=== PATIENT | female | born 1950 | race Caucasian/White ===

== ENCOUNTER 2017-06-26 16:51 | Inpatient (IN) | payer OTHER ==
[2017-06-26] MEDS ORDERED: LEVAQUIN PREMIX IV 750 MG 750 MG/150 ML BAG IV SCH (19:18)
[2017-06-26] MEDS ORDERED: TUSSIONEX PENNKINETIC SUSP PO PRN (19:18)
[2017-06-26 20:01] LABS: BASOPHILS # (AUTO) 0.1 X10^3/uL (0.0-0.1); BASOPHILS % (AUTO) 0.7 % (0.2-1.0); EOSINOPHILS # (AUTO) 0.1 x10^3/uL (0.0-0.2); EOSINOPHILS % (AUTO) 0.8 % (0.9-2.9); HEMATOCRIT 38.5 % (36.0-47.0); HEMOGLOBIN 13.2 g/dL (12.0-16.0); LYMPHOCYTES # (AUTO) 1.5 X10^3/uL (1.3-2.9); LYMPHOCYTES % (AUTO) 13.8 % (21.0-51.0); MEAN CORPUSCULAR HEMOGLOBIN 29.4 pg (27.0-34.0); MEAN CORPUSCULAR HGB CONC 34.2 g/dL (33.0-35.0); MEAN PLATELET VOLUME 8.2 fL (7.4-11.0); MONOCYTES # (AUTO) 0.6 x10^3/uL (0.3-0.8); MONOCYTES % (AUTO) 5.8 % (0.0-13.0); NEUTROPHILS # (AUTO) 8.8 x10^3/uL (2.2-4.8); NEUTROPHILS % (AUTO) 78.9 % (42.0-75.0); PLATELET COUNT 370 X10^3/uL (150.0-450.0); RED BLOOD COUNT 4.48 X10^6/uL (3.5-5.4); RED CELL DISTRIBUTION WIDTH 13.1 % (11.6-16.5); WHITE BLOOD COUNT 11.1 X10^3/uL (3.6-10.0)
[2017-06-26 20:05] VITALS: BMI 21.4
[2017-06-26 20:06] LABS: ALANINE AMINOTRANSFERASE 19 Units/L (12-78); ALBUMIN 3.1 g/dL (3.4-5.0); ALKALINE PHOSPHATASE 98 Units/L (46-116); ASPARTATE AMINO TRANSFERASE 14 Units/L (15-37); BLOOD UREA NITROGEN 18 mg/dL (7-18); CALCIUM 9.2 mg/dL (8.5-10.1); CARBON DIOXIDE 30.5 mmol/L (21-32); CHLORIDE 100 mmol/L (98-107); COR CA(FOR HYPOALB) 9.9 mg/dL (8.5-10.1); COR NA(FOR HYPERGLY) 139 mmol/L (136-145); CREATININE 0.69 mg/dL (0.55-1.02); SODIUM 139 mmol/L (136-145); TOTAL PROTEIN 7.4 g/dL (6.4-8.2); eGFR BLACK RACES > 60 (>60); eGFR NON BLACK RACES > 60 (>60)
[2017-06-26] MEDS: DUONEB 0.5 MG/3 MG NEB SCH (20:08)
[2017-06-26] MEDS ORDERED: NS 1/2 1000 ML IV 1,000 ML IV ONE (20:51)
[2017-06-26] MEDS ORDERED: LEVAQUIN PREMIX IV 750 MG 750 MG/150 ML BAG IV ONE (21:00)
--- NOTE | 2017-06-26 21:15 | RAD ---
HISTORY: Pneumonia Study: PA and lateral views of the chest. Comparison: None. Findings: The cardiomediastinal silhouette is normal. No focal consolidations, pleural effusions or pneumothora x. Possible left mid lung nodule peripherally. Diffuse increased interstitial markings and hyper expa nsion. IMPRESSION: 1. Findings of COPD with diffuse interstitial prominence and possible left lung nodule. Reported By:
[2017-06-26] MEDS: ZOSYN VIAL 4.5 GM 4.5 GM in NS 100 ML IV + SPIKE MINIBAG* 100 ML IV SCH (21:34)
[2017-06-26] MEDS: ROBITUSSIN DM PO SCH (21:34)
[2017-06-26] MEDS: NS 1/2 1000 ML IV 1,000 ML IV SCH (21:35)
[2017-06-26] MEDS ORDERED: ZOSYN VIAL 4.5 GM 4.5 GM in NS 100 ML IV + SPIKE MINIBAG* 100 ML IV SCH (22:00)
[2017-06-27] MEDS ORDERED: NS 250 ML IV 250 ML IV ONE (05:02)
[2017-06-27] MEDS: ZOSYN VIAL 4.5 GM 4.5 GM in NS 100 ML IV + SPIKE MINIBAG* 100 ML IV SCH ×3 (05:14→21:43)
[2017-06-27 06:17] LABS: BASOPHILS # (AUTO) 0.1 X10^3/uL (0.0-0.1); BASOPHILS % (AUTO) 0.8 % (0.2-1.0); EOSINOPHILS # (AUTO) 0.2 x10^3/uL (0.0-0.2); EOSINOPHILS % (AUTO) 2.4 % (0.9-2.9); HEMATOCRIT 36.6 % (36.0-47.0); HEMOGLOBIN 12.3 g/dL (12.0-16.0); LYMPHOCYTES # (AUTO) 1.5 X10^3/uL (1.3-2.9); LYMPHOCYTES % (AUTO) 17.1 % (21.0-51.0); MEAN CORPUSCULAR HEMOGLOBIN 28.9 pg (27.0-34.0); MEAN CORPUSCULAR HGB CONC 33.7 g/dL (33.0-35.0); MEAN CORPUSCULAR VOLUME 85.7 fL (80.0-100.0); MEAN PLATELET VOLUME 7.8 fL (7.4-11.0); MONOCYTES # (AUTO) 0.7 x10^3/uL (0.3-0.8); MONOCYTES % (AUTO) 7.9 % (0.0-13.0); NEUTROPHILS # (AUTO) 6.2 x10^3/uL (2.2-4.8); NEUTROPHILS % (AUTO) 71.8 % (42.0-75.0); PLATELET COUNT 333 X10^3/uL (150.0-450.0); RED BLOOD COUNT 4.28 X10^6/uL (3.5-5.4); RED CELL DISTRIBUTION WIDTH 13.3 % (11.6-16.5); WHITE BLOOD COUNT 8.7 X10^3/uL (3.6-10.0)
[2017-06-27 06:51] LABS: ALANINE AMINOTRANSFERASE 20 Units/L (12-78); ALBUMIN 2.7 g/dL (3.4-5.0); ALKALINE PHOSPHATASE 83 Units/L (46-116); ASPARTATE AMINO TRANSFERASE 12 Units/L (15-37); BLOOD UREA NITROGEN 17 mg/dL (7-18); CALCIUM 8.6 mg/dL (8.5-10.1); CARBON DIOXIDE 29.6 mmol/L (21-32); CHLORIDE 102 mmol/L (98-107); COR CA(FOR HYPOALB) 9.6 mg/dL (8.5-10.1); CREATININE 0.68 mg/dL (0.55-1.02); SODIUM 138 mmol/L (136-145); TOTAL PROTEIN 6.6 g/dL (6.4-8.2); eGFR BLACK RACES > 60 (>60); eGFR NON BLACK RACES > 60 (>60)
--- NOTE | 2017-06-27 07:21 | RAD ---
HISTORY: Pneumonia Study: Single-view chest Comparison: 06/26/2017 at 9:01 p.m.. Findings: There is a right to left shift of the trachea and mediastinum with hyper expansion of the right lung. Volume loss is again seen on the left with elevation of the left hemidiaphragm. Soft tissue thickeni ng is present in the left paratracheal region which may indicate atelectasis or mass formation or ene nopathy in this region. Increased interstitial markings are present involving both lungs, more so on the left. There is again evidence of a possible left mid-lower lung nodule. Pleural spaces are clear. No pneumothorax is seen. Osseous structures are intact. IMPRESSION: Volume loss in the left lung with soft tissue thickening in the left paratracheal region which may be on the basis of atelectasis, adenopathy or mass. Changes of COPD with suspect nodule present in the left mid-lower lung region. Recommend: CT scanning of the chest with IV contrast. Reported By:
[2017-06-27] MEDS: DUONEB 0.5 MG/3 MG NEB SCH ×4 (08:51→20:35)
[2017-06-27] MEDS: ROBITUSSIN DM PO SCH ×5 (09:47→21:46)
--- NOTE | 2017-06-27 10:25 | DR.UPDATE ---
H&P Update History and Physical Update: WAS SEEN IN THE OFFICE ON 11/23/2017. SHE WAS ADMITTED FOR PNEUMONIA. A H&P WAS COMPLETED PRIOR TO ADMISSION. PATIENT HAS BEEN SEEN AND EXAMINED WITH NO CHANGES NOTED TO H&P. Changes noted: NO Yes with the following:
[2017-06-27] MEDS: PROTONIX INJ 40 MG VIAL IVP SCH ×2 (10:49→21:45)
[2017-06-27] MEDS: SOLU-Medrol 40 MG VIAL IVP SCH ×3 (10:49→21:45)
[2017-06-27] MEDS: TORADOL 15 MG VIAL IVP SCH ×3 (10:49→21:46)
[2017-06-27] MEDS: LEVSIN/MAALOX/LIDOC VISC PO SCH ×4 (10:50→21:44)
[2017-06-27] MEDS ORDERED: NORCO 10/325 TAB PO PRN (11:19)
[2017-06-27] MEDS ORDERED: XANAX PO PRN (11:19)
[2017-06-27] MEDS: PULMICORT NEB TX 0.5 MG NEB SCH ×2 (13:51→20:35)
[2017-06-27] MEDS ORDERED: NS 1/2 1000 ML IV 1,000 ML IV ONE (17:10)
[2017-06-27] MEDS: NS 1/2 1000 ML IV 1,000 ML IV SCH (17:14)
[2017-06-28] MEDS: TORADOL 15 MG VIAL IVP SCH ×4 (04:33→22:26)
[2017-06-28] MEDS: ZOSYN VIAL 4.5 GM 4.5 GM in NS 100 ML IV + SPIKE MINIBAG* 100 ML IV SCH ×3 (06:17→22:26)
[2017-06-28] MEDS: SOLU-Medrol 40 MG VIAL IVP SCH ×3 (06:17→22:26)
[2017-06-28 06:23] LABS: BASOPHILS # (AUTO) 0.1 X10^3/uL (0.0-0.1); BASOPHILS % (AUTO) 0.6 % (0.2-1.0); HEMATOCRIT 33.9 % (36.0-47.0); HEMOGLOBIN 11.5 g/dL (12.0-16.0); LYMPHOCYTES # (AUTO) 0.7 X10^3/uL (1.3-2.9); MEAN CORPUSCULAR HEMOGLOBIN 29.2 pg (27.0-34.0); MEAN CORPUSCULAR HGB CONC 33.9 g/dL (33.0-35.0); MEAN PLATELET VOLUME 8.5 fL (7.4-11.0); MONOCYTES # (AUTO) 0.5 x10^3/uL (0.3-0.8); MONOCYTES % (AUTO) 2.8 % (0.0-13.0); NEUTROPHILS # (AUTO) 15.7 x10^3/uL (2.2-4.8); NEUTROPHILS % (AUTO) 92.6 % (42.0-75.0); PLATELET COUNT 351 X10^3/uL (150.0-450.0); RED BLOOD COUNT 3.95 X10^6/uL (3.5-5.4); RED CELL DISTRIBUTION WIDTH 13.4 % (11.6-16.5)
[2017-06-28 06:32] LABS: ALANINE AMINOTRANSFERASE 24 Units/L (12-78); ALKALINE PHOSPHATASE 82 Units/L (46-116); ASPARTATE AMINO TRANSFERASE 18 Units/L (15-37); BLOOD UREA NITROGEN 20 mg/dL (7-18); CALCIUM 8.4 mg/dL (8.5-10.1); CHLORIDE 104 mmol/L (98-107); COR CA(FOR HYPOALB) 9.2 mg/dL (8.5-10.1); COR NA(FOR HYPERGLY) 141 mmol/L (136-145); CREATININE 0.67 mg/dL (0.55-1.02); SODIUM 140 mmol/L (136-145); TOTAL PROTEIN 6.3 g/dL (6.4-8.2); eGFR BLACK RACES > 60 (>60); eGFR NON BLACK RACES > 60 (>60)
[2017-06-28 06:47] LABS: BAND NEUTROPHILS % 1 % (0-10); PLATELET MORPHOLOGY COMMENT NORMAL (NORMAL)
[2017-06-28] MEDS ORDERED: NS 1/2 1000 ML IV 1,000 ML IV ONE (08:34)
--- NOTE | 2017-06-28 08:42 | CT ---
HISTORY: Pneumonia Study: CT scan of the chest with IV contrast Comparison: Chest x-ray done 06/27/2017. Technique: Axial CT acquisition was performed during IV contrast material administration. In addition to multi planar reconstructions, axial MIP reconstructions were also reviewed. Findings: There is a 3 cm left hilar mass which is seen to narrow the left mainstem bronchus. This is also seen to encircle and occlude branches of the left lower lobe pulmonary artery. No filling defects are see n within the pulmonary arteries and no evidence of pulmonary embolus is seen. There is no evidence of thoracic aortic aneurysm. Central mediastinal adenopathy is present as well as adenopathy in the aor topulmonary window. There are changes of COPD present with centrilobular emphysema and cylindrical br onchiectasis. Patchy left perihilar atelectasis or infiltrate is present extending into the left lowe r lobe. No dense consolidation or fluid is seen. Liver and adrenal glands are unremarkable. Multileve l degenerative changes are seen involving the thoracic spine. IMPRESSION: 3 cm left hilar mass with narrowing of the left mainstem bronchus. This mass is seen to encircle and exclude branches of the pulmonary artery supplying the left lower lobe. Bronchoscopic evaluation and biopsy of the hilar mass are recommended. COPD and left perihilar/left lower lobe patchy foci of atelectasis or infiltrate are present. No evidence of pulmonary embolus or thoracic aortic aneurysm. Reported By:
[2017-06-28] MEDS ORDERED: LEVAQUIN PREMIX IV 750 MG 750 MG/150 ML BAG IV SCH (09:00)
[2017-06-28] MEDS: PULMICORT NEB TX 0.5 MG NEB SCH ×2 (09:01→21:07)
[2017-06-28] MEDS: DUONEB 0.5 MG/3 MG NEB SCH ×4 (09:01→21:07)
[2017-06-28] MEDS: PROTONIX INJ 40 MG VIAL IVP SCH ×2 (09:07→20:41)
[2017-06-28] MEDS: LEVSIN/MAALOX/LIDOC VISC PO SCH ×4 (09:07→20:43)
[2017-06-28] MEDS: ROBITUSSIN DM PO SCH ×4 (09:08→20:46)
[2017-06-28] MEDS ORDERED: FIORICET TAB PO PRN (11:07)
--- NOTE | 2017-06-28 13:04 | MRI ---
STUDY: MRI OF THE BRAIN WITHOUT AND WITH GADOLINIUM HISTORY: Headache. Rule out metastatic disease. Technique: Multiplanar multi-sequence MRI of the brain was obtained using standard departmental charlie col. Sagittal and axial T1, axial T2, FLAIR, diffusion (DWI/ADC), GRE, and coronal T2 images through the brain were performed. 12 cc of Omniscan was administered intravenously without reported complication following acquisition of informed written consent. Post gadolinium axial and coronal T1 weighted images were also performed and reviewed. Comparison: None. Findings: Pre gadolinium brain: The sulci, cisterns and ventricles are prominent consistent with mild diffuse v olume loss. There are thin confluent and scattered foci of T2 prolongation in the periventricular and subcortical white matter of both hemispheres. This is a nonspecific finding which likely represents microangiopathic change in a patient of this age. There is no evidence of acute territorial infarction, hemorrhage, mass, mass effect, or midline shift . There are no abnormal intra-axial or extra-axial fluid collections. The major intracranial vascular flow voids appear intact. The vertebral arteries are codominant. Post gadolinium brain: Following the uneventful administration of intravenous gadolinium, there is no evidence of abnormal parenchymal or leptomeningeal enhancement. IMPRESSION: 1. No evidence of acute intracranial abnormality. No evidence of metastatic disease to the brain at this time. 2. Nonspecific white matter change and mild volume loss. Reported By:
[2017-06-28] MEDS: NS 1/2 1000 ML IV 1,000 ML IV SCH ×2 (15:42→15:43)
[2017-06-28] MEDS: NICOTINE PATCH TD SCH (22:00)
[2017-06-28] MEDS: CHECK PATCH XX SCH (22:25)
[2017-06-29] MEDS: SOLU-Medrol 40 MG VIAL IVP SCH (05:00)
[2017-06-29] MEDS: ZOSYN VIAL 4.5 GM 4.5 GM in NS 100 ML IV + SPIKE MINIBAG* 100 ML IV SCH (05:00)
[2017-06-29] MEDS: TORADOL 15 MG VIAL IVP SCH ×2 (05:17→09:58)
[2017-06-29] MEDS: NS 1/2 1000 ML IV 1,000 ML IV SCH ×2 (05:18→10:03)
[2017-06-29 06:16] LABS: BASOPHILS # (AUTO) 0.1 X10^3/uL (0.0-0.1); BASOPHILS % (AUTO) 0.3 % (0.2-1.0); HEMATOCRIT 35.2 % (36.0-47.0); HEMOGLOBIN 11.7 g/dL (12.0-16.0); LYMPHOCYTES % (AUTO) 5.3 % (21.0-51.0); MEAN CORPUSCULAR HEMOGLOBIN 28.8 pg (27.0-34.0); MEAN CORPUSCULAR HGB CONC 33.2 g/dL (33.0-35.0); MEAN CORPUSCULAR VOLUME 86.8 fL (80.0-100.0); MEAN PLATELET VOLUME 8.8 fL (7.4-11.0); MONOCYTES # (AUTO) 0.7 x10^3/uL (0.3-0.8); MONOCYTES % (AUTO) 3.6 % (0.0-13.0); NEUTROPHILS # (AUTO) 17.5 x10^3/uL (2.2-4.8); NEUTROPHILS % (AUTO) 90.8 % (42.0-75.0); PLATELET COUNT 333 X10^3/uL (150.0-450.0); RED BLOOD COUNT 4.06 X10^6/uL (3.5-5.4); RED CELL DISTRIBUTION WIDTH 13.5 % (11.6-16.5); WHITE BLOOD COUNT 19.3 X10^3/uL (3.6-10.0)
[2017-06-29 06:40] LABS: ALANINE AMINOTRANSFERASE 26 Units/L (12-78); ALBUMIN 2.7 g/dL (3.4-5.0); ALKALINE PHOSPHATASE 73 Units/L (46-116); ASPARTATE AMINO TRANSFERASE 25 Units/L (15-37); BLOOD UREA NITROGEN 16 mg/dL (7-18); CALCIUM 8.6 mg/dL (8.5-10.1); CARBON DIOXIDE 25.3 mmol/L (21-32); CHLORIDE 107 mmol/L (98-107); COR CA(FOR HYPOALB) 9.6 mg/dL (8.5-10.1); COR NA(FOR HYPERGLY) 145 mmol/L (136-145); CREATININE 0.69 mg/dL (0.55-1.02); SODIUM 144 mmol/L (136-145); TOTAL PROTEIN 6.5 g/dL (6.4-8.2); eGFR BLACK RACES > 60 (>60); eGFR NON BLACK RACES > 60 (>60)
[2017-06-29 07:10] LABS: PLATELET MORPHOLOGY COMMENT NORMAL (NORMAL)
[2017-06-29] MEDS: PULMICORT NEB TX 0.5 MG NEB SCH (09:01)
[2017-06-29] MEDS: DUONEB 0.5 MG/3 MG NEB SCH ×2 (09:01→12:20)
[2017-06-29] MEDS ORDERED: NS 1/2 1000 ML IV 1,000 ML IV ONE (09:02)
[2017-06-29] MEDS: PROTONIX INJ 40 MG VIAL IVP SCH (09:58)
[2017-06-29] MEDS: NICOTINE PATCH TD SCH (10:00)
[2017-06-29] MEDS: LEVSIN/MAALOX/LIDOC VISC PO SCH (10:01)
[2017-06-29] MEDS: ROBITUSSIN DM PO SCH (10:10)
[2017-06-29 12:35] VITALS: BP 130/63
[2017-06-29] MEDS: CHECK PATCH XX SCH (12:45)
--- NOTE | 2017-06-29 13:57 | PCM.PROG ---
Progress Note - Progress Note for Day of Date: 06/27/17 - Subjective Subjective: WAS ADMITTED FOR COMMUNITY ACQUIRED PNEUMONIA. TODAY, SHE IS ALERT AND ORIENTED, LYING IN BED ON MORNING ROUNDS. PATIENTS DAUGHTERS ARE AT BEDSIDE. SHE IS NOTED WITH COMPLAINTS OF NON-PRODUCTIVE COUGH AND SHORTNESS OF BREATH. ON EXAMINATION, HEART IS REGULAR IN RATE AND RHYTHM. BILATERAL LUNGS ARE NOTED WITH SCATTERED WHEEZING AND RHONCHI. SHE IS CURRENTLY UTILIZING OXYGEN VIA NASAL CANNULA AT 2L/MIN. ABDOMEN IS ROUND, SOFT, AND NON- TENDER WITH NORMAL BOWEL SOUNDS NOTED IN ALL QUADRANTS. THERE IS NORMAL RANGE OF MOTION NOTED TO BILATERAL EXTREMITIES. HER VITALS THIS MORNING ARE 98.2-84-20 -96%-121/62. LABS WERE OBTAINED. SHE IS HEMODYNAMICALLY STABLE TODAY. A CHEST XRAY WAS OBTAINED THIS MORNING AND REPORTED VOLUME LOSS IN THE LEFT LUNG WITH SOFT TISSUE THICKENING IN THE LEFT PARATRACHEAL REGION WHICH MAY BE ON THE BASIS OF ATELECTASIS, ADENOPATHY, OR MASS. CHANGES OF COPD WITH SUSPECT NODULE PRESENT IN THE LEFT MID-LOWER LUNG REGION. PATIENT REPORTS THAT SHE WAS RECENTLY HOSPITALIZED IN [place], [place] FOR ABDOMINAL PAIN. SHE REPORTS THAT A CT OF THE ABD/PELVIS CAUGHT PART OF THE LUNGS AND SUGGESTED A MASS. PATIENT HAS AN APPOINTMENT SCHEDULED WITH , [facility] IN [place], [place] ON June. TODAY, WE WILL ORDER A CT OF THE CHEST WITH CONTRAST TO FURTHER ASSESS. WE WILL ALSO START SOLU-MEDROL 40MG IV Q8H, PROTONIX 40MG IV BID, AND TORADOL 15MG IV Q6H FOR PLEURISY. OTHERWISE, WE WILL CONTINUE CURRENT PLAN OF CARE FOR PNEUMONIA. WE PLAN TO FOLLOW UP WITH AM LABS AND CONTINUE TO MONITOR PATIENT. - Past Medical Family Social History Past Med/Fam/Surg Hx: No changes since H&P Allergies: Allergies No Known Drug Allergies Allergy (Verified 06/26/17 19:29) - Review of Systems ROS: No change since H&P - Vital Signs and I&O's Vital Signs: Temperature 97.8 F Pulse Rate [Left Brachial] 94 Pulse Rate 99 Respiratory Rate 20 Blood Pressure [Left Arm] 130/63 O2 Sat by Pulse Oximetry 97 Intake and Output: Intake & Output 06/27/17 06/28/17 06/29/17 06/30/17 11:59 11:59 11:59 11:59 Intake Total 2260 3531 281 Balance 2260 [id number] [id number] - Physical Exam Oriented: Normal Eyes: Normal Ear: Normal Nose: Normal Throat: Normal Respiratory: Right, Left, Generalized, Wheezes, Rhonchi Cardiovascular: Normal. negative: S3, S4, Murmur : Normal Auscultation: Bowel Sounds: Normal Palpation: Normal Tenderness: Normal Skin: Normal Musculoskeletal: Normal Psychiatric: Normal Mood Description: Calm Affect: Normal Speech Pattern: Clear, Appropriate - Laboratory and Diagnostics Result Diagrams: 06/29/17 05:05 06/29/17 05:05 Labs: 06/26/17 20:44 Sputum - Expectorated Sputum Sputum Culture - Final 06/26/17 20:44 Sputum - Expectorated Sputum - Final 06/26/17 19:37 Blood Blood Culture - Preliminary 06/26/17 19:32 Blood Blood Culture - Preliminary Laboratory WBC 19.3 X10^3/uL (3.6-10.0) H 06/29/17 05:05 RBC 4.06 X10^6/uL (3.5-5.4) 06/29/17 05:05 Hgb 11.7 g/dL (12.0-16.0) L 06/29/17 05:05 Hct 35.2 % (36.0-47.0) L 06/29/17 05:05 MCV 86.8 fL (80.0-100.0) 06/29/17 05:05 MCH 28.8 pg (27.0-34.0) 06/29/17 05:05 MCHC 33.2 g/dL (33.0-35.0) 06/29/17 05:05 RDW 13.5 % (11.6-16.5) 06/29/17 05:05 Plt Count 333 X10^3/uL (150.0-450.0) 06/29/17 05:05 Plt Count Comment Adequate (ADEQUATE) 06/29/17 05:05 MPV 8.8 fL (7.4-11.0) 06/29/17 05:05 Neut % 90.8 % (42.0-75.0) H 06/29/17 05:05 Lymph % 5.3 % (21.0-51.0) L 06/29/17 05:05 [place] % 3.6 % (0.0-13.0) 06/29/17 05:05 Eos % 0.0 % (0.9-2.9) L 06/29/17 05:05 Baso % 0.3 % (0.2-1.0) 06/29/17 05:05 Neut # 17.5 x10^3/uL (2.2-4.8) H 06/29/17 05:05 Lymph # 1.0 X10^3/uL (1.3-2.9) L 06/29/17 05:05 [place] # 0.7 x10^3/uL (0.3-0.8) 06/29/17 05:05 Eos # 0.0 x10^3/uL (0.0-0.2) 06/29/17 05:05 Baso # 0.1 X10^3/uL (0.0-0.1) 06/29/17 05:05 Absolute Nucleated RBC 0.0 /100WBC 06/29/17 05:05 Total Counted 100 06/29/17 05:05 Neutrophils % (Manual) 92 % (39-76) H 06/29/17 05:05 Band Neutrophils % 1 % (0-10) 06/28/17 05:15 Lymphocytes % (Manual) 8 % (13-43) L 06/29/17 05:05 Monocytes % (Manual) 2 % (4-9) L 06/28/17 05:15 Plt Morphology Comment Normal (NORMAL) 06/29/17 05:05 RBC Morphology Normal (NORMAL) 06/29/17 05:05 Sodium 144 mmol/L (136-145) 06/29/17 05:05 Corrected Sodium 145 mmol/L (136-145) 06/29/17 05:05 Potassium 4.5 mmol/L (3.5-5.1) 06/29/17 05:05 Chloride 107 mmol/L (98-107) 06/29/17 05:05 Carbon Dioxide 25.3 mmol/L (21-32) 06/29/17 05:05 BUN 16 mg/dL (7-18) 06/29/17 05:05 Creatinine 0.69 mg/dL (0.55-1.02) 06/29/17 05:05 Est GFR (MDRD) Af Amer > 60 (>60) 06/29/17 05:05 Est GFR (MDRD) Non-Af > 60 (>60) 06/29/17 05:05 Glucose 147 mg/dL (65-99) H 06/29/17 05:05 Calcium 8.6 mg/dL (8.5-10.1) 06/29/17 05:05 Corrected Calcium 9.6 mg/dL (8.5-10.1) 06/29/17 05:05 Total Bilirubin 0.20 mg/dL (0.2-1.0) 06/29/17 05:05 AST 25 Units/L (15-37) 06/29/17 05:05 ALT 26 Units/L (12-78) 06/29/17 05:05 Alkaline Phosphatase 73 Units/L (46-116) 06/29/17 05:05 Total Protein 6.5 g/dL (6.4-8.2) 06/29/17 05:05 Albumin 2.7 g/dL (3.4-5.0) L 06/29/17 05:05 Globulin 3.8 g/dL (2.5-4.5) 06/29/17 05:05 Albumin/Globulin Ratio 0.7 Ratio (1.1-2.1) L 06/29/17 05:05 - Plan (1) Community acquired pneumonia Status: Acute Qualifiers: Laterality: left Lung location: unspecified part of lung Qualified Code(s ): J18.9 - Pneumonia, unspecified organism Plan: PNEUMONIA PROTOCOL, LEVAQUIN IV, ZOSYN IV, RESPIRATORY TX, SUPPLEMENTAL OXYGEN, CONTINUE TO MONITOR (2) Pleurisy Status: Acute Plan: TORADOL 15MG IV Q6H, CONTINUE TO MONITOR
== END 2017-06-29 12:45 | disposition left against medical advice (07) | DRG 195 ==
LOC: MED/SURG 16:51 → EDBD 16:51
PROVIDERS: ADMIT Internal Medicine; ATTEND Internal Medicine
DX: J18.9 Pneumonia, unspecified organism (principal); R91.1 Solitary pulmonary nodule; J20.8 Acute bronchitis due to other specified organisms; R06.02 Shortness of breath; R09.1 Pleurisy
CPT/HCPCS: 36415; 70553; 71045; 71046; 71260; 80053; 85025; 87040; 87070; 87205; 94640; 94760; A4222; C9113; J1956; J2543; J2920; J7620; J7626